=== PATIENT | male | born 1990 | race Caucasian/White ===

== ENCOUNTER 2017-03-08 10:52 | Emergency (ER) | payer MEDICAID ==
[2017-03-08 11:37] LABS: BASOPHIL % 0.4 % (0-2); PLATELET COUNT 205 x10^3mcL (130-400); RED CELL DISTRIBUTION WIDTH 12.8 % (11.5-14.5)
[2017-03-08 11:43] LABS: CALCIUM 8.2 mg/dL (8.5-10.1); CARBON DIOXIDE 28.3 mmol/L (21-32); CHLORIDE SERUM 107 mmol/L (98-107); CREATININE SERUM 0.9 mg/dL (0.7-1.3); GFR1 > 60 mL/min; GLUCOSE SERUM 95 mg/dL (74-106); POTASSIUM SERUM 3.7 mmol/L (3.5-5.1); SODIUM SERUM 141 mmol/L (136-145)
[2017-03-08 11:55] LABS: ALKALINE PHOSPHATASE 90 U/L (46-116); ALT/SGPT 205 U/L (16-63); AMYLASE 64 U/L (25-115); AST/SGOT 66 U/L (15-37); BILIRUBIN TOTAL 0.4 mg/dL (0.20-1.00); LIPASE 135 IU/L (73-393); TOTAL PROTEIN, SERUM 6.6 g/dL (6.4-8.2)
[2017-03-08 11:57] LABS: ALBUMIN 3.2 g/dL (3.4-5.0)
[2017-03-08 13:01] VITALS: BP 111/70
== END 2017-03-08 13:01 | disposition home or self-care (01) ==
LOC: ED 10:52
PROVIDERS: Emergency Medicine
DX: R10.13 Epigastric pain (principal); R11.2 Nausea with vomiting, unspecified; R19.7 Diarrhea, unspecified
CPT/HCPCS: 83880; J1885; J7030

== ENCOUNTER 2018-12-03 18:04 | Emergency (ER) | payer MEDICAID ==
[~2018-12-03] VITALS: Ht 167.6 cm; Wt 95.7 kg
[2018-12-03 18:28] VITALS: Ht 167.6 cm; Wt 95.7 kg
[2018-12-03 20:22] VITALS: BP 113/53
== END 2018-12-03 20:17 | disposition home or self-care (01) ==
LOC: ED 18:04
DX: J40 Bronchitis, not specified as acute or chronic (principal); Z90.49 Acquired absence of other specified parts of digestive tract

== ENCOUNTER 2019-04-28 21:06 | Emergency (ER) | payer SELFPAY ==
[~2019-04-28] VITALS: Ht 167.6 cm; Wt 92.8 kg
[2019-04-28 21:21] VITALS: Ht 167.6 cm; Wt 92.8 kg
[2019-04-28 21:57] LABS: BASOPHIL % 0.2 % (0-2); PLATELET COUNT 189 x10^3mcL (130-400); RED CELL DISTRIBUTION WIDTH 13.3 % (11.5-14.5)
[2019-04-28 22:08] LABS: CALCIUM 8.6 mg/dL (8.5-10.1); CARBON DIOXIDE 25.3 mmol/L (21-32); CHLORIDE SERUM 103 mmol/L (98-107); GFR1 > 60 mL/min; GLUCOSE SERUM 109 mg/dL (74-106); POTASSIUM SERUM 3.3 mmol/L (3.5-5.1); SODIUM SERUM 139 mmol/L (136-145)
[2019-04-28 22:13] LABS: ALBUMIN 3.7 g/dL (3.4-5.0); ALKALINE PHOSPHATASE 111 U/L (46-116); ALT/SGPT 149 U/L (16-63); AST/SGOT 39 U/L (15-37); BILIRUBIN TOTAL 1.66 mg/dL (0.20-1.00); LIPASE 56 IU/L (73-393)
[2019-04-28 23:11] VITALS: BP 111/65
== END 2019-04-28 23:59 | disposition home or self-care (01) ==
LOC: ED 21:06
DX: R11.10 Vomiting, unspecified (principal); R19.7 Diarrhea, unspecified; R10.84 Generalized abdominal pain; Z90.89 Acquired absence of other organs
CPT/HCPCS: J0500; J2405; J7030